=== PATIENT | male | born 1960 | race Two or more races ===

== ENCOUNTER 2016-12-22 22:04 | Inpatient (IN) | payer BC, MEDICAID ==
[~2016-12-22] VITALS: Ht 182.9 cm; Wt 96.6 kg
[~2016-12-22 22:04] MED LIST: AMIT100T2 PO; ARIP5TAB4 PO; CARV6.252 PO; CITA20TA11 PO; CLON0.1T PO; CLON2TAB4 PO; CYCL5TAB PO; D-ME473S17 PO; DIPH50CA4 PO; FINA5TAB11 PO; FURO40TA5 PO; GABA800T2 PO; IBUP-1482 PO; LISI10TA5 PO; METF500T4 PO; PRAV20TA4 PO; SPIR50TA3 PO; TAMS0.4C34 PO; WARF5TAB6 PO
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
[2016-12-22] MEDS ORDERED: IV SET PRIMARY 1 EA INFUS.SET MC ONE (22:39)
[2016-12-22] MEDS ORDERED: IV NS 0.9% 1,000 ML ONE (22:39)
--- NOTE | 2016-12-22 22:50 | NUR ---
VERBAL ORDER FROM DR. STACK 1L NS BOLUS. GIVEN VIA 20G LT HAND.
--- NOTE | 2016-12-22 22:54 | NUR ---
PT LEFT FOR CT VIA GURNEY.
[2016-12-22 22:55] LABS: BASOPHILS # (AUTO) 0.1 /CMM (0.0-0.2); BASOPHILS % (AUTO) 0.4 % (0.0-2.0); EOSINOPHILS # (AUTO) 0.1 /CMM (0.0-0.7); EOSINOPHILS % (AUTO) 0.7 % (0.0-6.0); HEMATOCRIT 35 % (39-51); HEMOGLOBIN 11.7 g/dL (13.5-17.5); LYMPHOCYTES # (AUTO) 0.9 /CMM (0.8-4.8); LYMPHOCYTES % (AUTO) 6.6 % (20.0-44.0); MEAN CORPUSCULAR HEMOGLOBIN 32 PG (26.0-33.0); MEAN CORPUSCULAR HGB CONC 34 g/dl (31.0-36.0); MEAN CORPUSCULAR VOLUME 93 fL (80-96); MONOCYTES # (AUTO) 1.2 /CMM (0.1-1.30); MONOCYTES % (AUTO) 8.2 % (2.0-12.0); NEUTROPHILS % (AUTO) 84.1 % (43.0-81.0); PLATELET COUNT (AUTO) 301 /CMM (150-450); RDW COEFFICIENT OF VARIATION 15.4 (11.5-15.0); RED BLOOD CELL COUNT(AUTO) 3.72 MIL/uL (4.5-6.0); WHITE BLOOD COUNT (AUTO) 14.3 K/uL (4.3-11.0)
[2016-12-22 23:11] LABS: APPEARANCE,URINE SL CLOUDY (CLEAR); BILIRUBIN,URINE 1+ (NEGATIVE); BLOOD, URINE NEGATIVE Ery/uL (NEGATIVE); COLOR,URINE YELLOW (YELLOW); KETONES,URINE TRACE (NEGATIVE); LEUKOCYTE ESTERASE ,URINE TRACE (NEGATIVE); NITRITE, URINE NEGATIVE (NEGATIVE); PH,URINE 5.5 (5.0-8.0); PROTEIN,URINE TRACE mg/dl (NEGATIVE); UGLUCOSE NEGATIVE (NEGATIVE); UROBILINOGEN,URINE 0.2 EU/dL (0.2)
[2016-12-22 23:14] LABS: CALCIUM, SERUM 8.2 mg/dL (8.5-10.1); CARBON DIOXIDE 19 mmol/L (21-32); CHLORIDE 103 mmol/L (98-107); CREATININE 4.4 mg/dL (0.6-1.3); GLUCOSE 140 mg/dL (74-106); SODIUM SERUM 137 mmol/L (136-145); UREA NITROGEN, BLOOD 52 mg/dL (7-18)
--- NOTE | 2016-12-22 23:15 | NUR ---
PT RETURNED FROM CT.
[2016-12-22 23:17] LABS: ALANINE AMINOTRANSFERASE 28 U/L (12-78); ALBUMIN 3.2 g/dL (3.4-5.0); ALCOHOL, BLOOD < 3 mg/dL (0-0); ALKALINE PHOSPHATASE 67 U/L (46-116); ASPARTATE AMINOTRANSFERASE 19 U/L (15-37); BILIRUBIN,TOTAL 0.3 mg/dL (0.2-1.0); TOTAL PROTEIN, SERUM 6.9 g/dL (6.4-8.2)
[2016-12-22 23:18] LABS: ACETAMINOPHEN 0 ug/ml (10-30); SALICYLATE 1.9 mg/dL (2.8-20.0)
[2016-12-22 23:19] LABS: BACTERIA,URINE None seen /HPF (None Seen); SQUAMOUS EPITHELIAL CELL,UR Few /HPF (None Seen); URINE AMORPHOUS URATE Few /HPF (None Seen)
[2016-12-22 23:20] LABS: HYALINE CASTS, URINE Rare /LPF (None Seen); MUCUS,URINE Few /LPF (None Seen)
--- NOTE | 2016-12-22 23:44 | NUR ---
PT RETURNING TO CT VIA JUSTUS
[2016-12-23] VITALS (58 sets, daily range): BP systolic 74–132; BP diastolic 40–71
--- NOTE | 2016-12-23 00:18 | NUR ---
PT RETURNED FROM CT.
--- NOTE | 2016-12-23 00:21 | NUR ---
LAB AT BEDSIDE FOR LACTIC DRAW.
--- NOTE | 2016-12-23 01:19 | NUR ---
PT APPEARS TO BE SLEEPING SOUNDLY. VSS. PT IS ON 2L O2 VIA NC SATURATING AT 99%.
--- NOTE | 2016-12-23 01:50 | NUR ---
PT'S BREATHING CHANGED TO AGONAL. BP DROPPED TO 77/49. DR. STACK NOTIFIED. PT TO BE INTUBATED. RT CALLED.
[2016-12-23] MEDS ORDERED: IV NS 0.9% 1,000 ML BAG IV ONE ×2 (02:00)
--- NOTE | 2016-12-23 02:00 | NUR ---
MD Herrera at bed side for intubation along with RT Enrique. medicated pt as ordered for intubation; 10mg etomidate ivp, 150mg succinycholine ivp
--- NOTE | 2016-12-23 02:03 | NUR ---
INTUBATED BY DR. STACK WITH 7.5 AND 23cm AT THE LIP.
[2016-12-23] MEDS ORDERED: IV NS 0.9% 1,000 ML ONE ×4 (02:11→05:55)
[2016-12-23] MEDS ORDERED: IV SET PRIMARY PUMP SET 1 EA INFUS.SET MC ONE ×4 (02:11→16:06)
[2016-12-23] MEDS ORDERED: PROPOFOL 100 ML IV ONE (02:11)
--- NOTE | 2016-12-23 02:20 | NUR ---
CXR AT THE BEDSIDE.
--- NOTE | 2016-12-23 02:24 | NUR ---
PROPOFOL STARTED AT 25MCG/MIN (17ML/HR)
--- NOTE | 2016-12-23 02:48 | NUR ---
REPORT GIVEN TO EL, RN/CHG.
[2016-12-23 02:53] LABS: ABG BASE EXCESS -10.4 mmol/L; ABG OXYGEN SATURATION 97.4 % (92.0-98.5); ABG PCO2 37.1 mmHg (35.0-45.0); ABG PH 7.251 (7.350-7.450); ABG PO2 129.6 mmHg (75.0-100.0); AaDO2 185.2 mmHg; COHb 0.2 % (0.5-1.5); MetHb 0.4 % (0.0-1.5); O2Hb 96.8 % (94.0-97.0); PEEP,BG 5 cm H2O; SITE, ABG Right Radial; VENT MODE, BG A/C 14 600 50% +5; VT, ABG 600 mL
--- NOTE | 2016-12-23 03:13 | NUR ---
PT TRANSPORTED TO ICU VIA GURNEY WITH EMT, RT AND MYSELF.
[2016-12-23] MEDS ORDERED: IV NS 0.9% 1,000 ML IV ONE ×2 (04:30→05:00)
--- NOTE | 2016-12-23 05:14 | NUR ---
OCCUPATIONAL THERAPY CO DIRECTOR PT WAS ADMITTED FROM ER WITH DIAGNOSIS POLYSUBSTANCE OD, RESPIRATORY FAILURE. STAT INTUBATION WAS DONE IN ER & PT WAS PLACED ON VENTILATOR AC MODE & STARTED PROPOFOL DRIP. NS IV BOLUS 2000 ML GIVEN IN ER. DRUG SCREEN IS POSITIVE FOR OPIATES. LUNGS ARE CLEAR. SCOPE-SR. BY THE TIME PT ARRIVED TO ICU AT 03.30 A.M. BP DROPPED TO 74/40 PT GOT NONRESPONSIVE. REBECCA. PUPILS SIZE 2 MM. PROPOFOL DRIP STOPPED. GIVEN ANOTHER NS 1000 ML IV BOLUS. BP WENT UP TO 95/54. PT RESPONSE NOW TO PAINFUL STIMULI. ANOTHER NS BOLUS 1000 ML STARTED BY KIRA HUGHES DNP ORDER. /TOTALLY 4000 ML/. BY 5 A.M. BP 120/68. PT IS GETTING AGITATED, RESTARTED PROPOFOL DRIP. ETT WAS PULLED BACK BY 2 CM BY KIRA HUGHES DNP ORDER. ANOTHER STAT CXR ORDERED. SOFT WRIST RESTRAINS APPLIED. WILL CONTINUE CLOSE MONITORING
[2016-12-23] MEDS ORDERED: IV D5W 50 ML IV ONE (05:55)
[2016-12-23] MEDS ORDERED: PIPERACILLIN /TAZOBACTAM 3.375 G VIAL IV ONE (05:55)
[2016-12-23] MEDS ORDERED: SECONDARY IV SET 1 EA INFUS.SET MC ONE ×2 (05:56→11:01)
[2016-12-23] MEDS ORDERED: ENOXAPARIN SODIUM 40 MG/0.4 ML DISP.SYRIN SQ ONE (05:58)
[2016-12-23] MEDS ORDERED: PIPERACILLIN /TAZOBACTAM 3.375 G in IV D5W 50 ML IV SCH (06:00)
[2016-12-23] MEDS ORDERED: ONDANSETRON HCL/PF 4 MG/2 ML VIAL IVP PRN (06:00)
[2016-12-23] MEDS ORDERED: LEVOFLOXACIN 500 MG /D5W 100ML 500 MG in PREMIX 1 EA IV SCH (06:00)
[2016-12-23] MEDS ORDERED: ACETAMINOPHEN 325 MG TABLET PO PRN (06:00)
[2016-12-23] MEDS ORDERED: ENOXAPARIN SODIUM 40 MG/0.4 ML DISP.SYRIN SQ SCH (06:00)
[2016-12-23] MEDS: IV NS 0.9% 1,000 ML IV PRN ×3 (06:01→23:02)
[2016-12-23] MEDS ORDERED: LEVOFLOXACIN 500 MG /D5W 100ML 100 ML IV ONE (06:07)
[2016-12-23 06:17] LABS: ABG OXYGEN SATURATION 97.2 % (92.0-98.5); ABG PCO2 36.2 mmHg (35.0-45.0); ABG PH 7.285 (7.350-7.450); ABG PO2 114.9 mmHg (75.0-100.0); AaDO2 200.9 mmHg; COHb 0.3 % (0.5-1.5); O2Hb 95.9 % (94.0-97.0); PEEP,BG 5 cm H2O; SITE, ABG Right Radial; VT, ABG 600 mL
[2016-12-23] MEDS ORDERED: NOREPINEPHRINE 8 MG in IV D5W 500 ML IV PRN ×2 (06:30→08:00)
--- NOTE | 2016-12-23 06:47 | NUR ---
BUTCHER HELPER STARTED ZOSYN & LEVAQUIN IVPB. MAIN IV NS @ 150 ML/HR. BP IS BORDERLINE. PROPOFOL DRIP AT 5 MCG/KG/MIN. LEVOPHED PRN. NEED MIDLINE INSERTION. FREDRICK HU RN WAS NOTIFIED. URINE OUTPUT IS INADEQUATE. ANOTHER ABG DONE. PT IS IN METABOLIC ACIDOSES/ SEE RESULTS/. KIRA HUGHES DNP WAS CALLED.
--- NOTE | 2016-12-23 07:58 | NUR ---
ICU/RN: INITIAL NOTES,AM RECEIVED REPORT FROM NIGHT NURSE. PT INTUBATED ETT 7.5, 25CM AT THE LIP. PT ON VENT SETTINGS ORDERED BY MD, NO ACUTE RESP. DISTRESS NOTED AT THIS TIME. PT ON TELE, SINUS, HR 64. PT FOLLOWS COMMANDS. OPENS EYES AND TRACKS. LEON IN PLACE, DRAINING YELLOW URINE. PIVS IN PLACE AND INTACT, NO S/S OF INFECTION OR INFILTRATION NOTED. DIPRIVAN INFUSING ORDERED. MAINTENANCE FLUIDS INFUSING ORDERED 150 ML/HR. DR.TIM HUGHES WILL COME TO INSERT CENTRAL LINE. BILATERAL WRIST RESTRAINTS, ASSESSED PER PROTOCOL. ALL NEEDS WILL BE MET, SAFETY MEASURES TAKEN, BED IN LOW POSITION, SIDE RAILS UP, CALL LIGHT WITHIN REACH.
[2016-12-23] MEDS: PROPOFOL 100 ML IV PRN ×6 (08:44→23:02)
[2016-12-23] MEDS ORDERED: LEVOFLOXACIN 250 MG /D5W 50 ML 250 MG in PREMIX 1 EA IV SCH (09:00)
[2016-12-23] MEDS ORDERED: PANTOPRAZOLE 40 MG VIAL IV SCH (09:00)
[2016-12-23] MEDS ORDERED: ETOMIDATE 2 MG/ML VIAL IV ONE (09:00)
[2016-12-23] MEDS ORDERED: SUCCINYLCHOLINE CHLORIDE 20 MG/ML VIAL IV ONE (09:00)
[2016-12-23] MEDS ORDERED: FEE PK DOSING 1 MIN EA MC ONE (09:30)
[2016-12-23] MEDS ORDERED: VANCOMYCIN 1 GM in IV D5W 250 ML IV SCH (10:00)
[2016-12-23 10:01] LABS: BASOPHILS % (AUTO) 0.1 % (0.0-2.0); EOSINOPHILS # (AUTO) 0.1 /CMM (0.0-0.7); EOSINOPHILS % (AUTO) 0.6 % (0.0-6.0); HEMATOCRIT 31 % (39-51); HEMOGLOBIN 10.4 g/dL (13.5-17.5); LYMPHOCYTES # (AUTO) 1.2 /CMM (0.8-4.8); MEAN CORPUSCULAR HEMOGLOBIN 32 PG (26.0-33.0); MEAN CORPUSCULAR HGB CONC 33 g/dl (31.0-36.0); MEAN CORPUSCULAR VOLUME 95 fL (80-96); MONOCYTES % (AUTO) 9.1 % (2.0-12.0); NEUTROPHILS # (AUTO) 8.5 /CMM (1.8-8.9); NEUTROPHILS % (AUTO) 79.2 % (43.0-81.0); PLATELET COUNT (AUTO) 231 /CMM (150-450); RDW COEFFICIENT OF VARIATION 15.8 (11.5-15.0); RED BLOOD CELL COUNT(AUTO) 3.29 MIL/uL (4.5-6.0); WHITE BLOOD COUNT (AUTO) 10.7 K/uL (4.3-11.0)
[2016-12-23 11:02] LABS: ALBUMIN 2.6 g/dL (3.4-5.0); BILIRUBIN,TOTAL 0.4 mg/dL (0.2-1.0); CALCIUM, SERUM 7.1 mg/dL (8.5-10.1); CREATININE 3.4 mg/dL (0.6-1.3); MAGNESIUM 1.8 mg/dL (1.8-2.4); PHOSPHORUS 3.8 mg/dL (2.5-4.9); POTASSIUM 4.4 mmol/L (3.5-5.1); TOTAL PROTEIN, SERUM 5.9 g/dL (6.4-8.2)
--- NOTE | 2016-12-23 11:45 | NUR ---
ICU/RN: PER MD ETT ADVANCED AGAIN TO 28CM. STAT CHEST XRAY DONE
[2016-12-23] MEDS: PIPERACILLIN /TAZOBACTAM 2.25 G in IV D5W 50 ML IV SCH ×3 (12:21→23:15)
--- NOTE | 2016-12-23 16:53 | NUR ---
END OF SHIFT SUMMARY PT REMAINS INTUBATED WITH 7.5 EET-TUBE SECURED AT 28CM. VENT SETTINGS ORDERED ALARMS SET AND AUDIBLE. B/S EQUAL. AMBUBAG AT HEAD OF BED Addendum: 12/23/16 at 1654 by CHILANGO THOMAS RT Amended: Links added.
--- NOTE | 2016-12-23 18:46 | NUR ---
ICU/RN ENDING NOTES,AM REPORT WILL BE ENDORSED TO NIGHT NURSE FOR CONTINUATION OF CARE. PT INTUBATED ETT 7.5 AND ANCHORED AT 28 CM AT THE LIP. PT ON VENT SETTINGS ORDERED BY MD, NO ACUTE DISTRESS NOTED AT THIS TIME. DIPRIVAN INFUSING AT [address], DRAINING YELLOW URINE. RIGHT CHEST WALL CENTRAL LINE IN PLACE, FLUSHED. ALL NEEDS MET, SAFETY MEASURES TAKEN, BED IN LOW POSITION, SIDE RAILS UP, CALL LIGHT WITHIN REACH.
--- NOTE | 2016-12-23 21:01 | NUR ---
JACQUARD LOOM HEDDLES TIER. INITIAL ASSESSMENT.RECEIVED THE PT REST ON THE BED.ORALLY INTUBATED.SEDATED WITH DIPRIVAN. 50MCG/KG/MIN,IVF NS 150ML/H.IV RT CHEST CENTRAL LINE..NPO. LINWOOD SOFT WRIST RESTRAINT CHECKED AND RELEASED.NO INJURY OR REDNESS NOTED.CASHIER ASSISTANT SHOWING NSR.FC PATENT.URINE DRAINING.HOB ELEVATED.TURN AND REPOSITION Q2H. WILL CONTINUE TO MONITOR VITALS.
--- NOTE | 2016-12-23 21:16 | NUR ---
BOOK MENDER.PT GETTING OUT OF BED.BITING TUBES.AGITATED.CALLED BANK RUNNER ERIC NEW ORDER RECEIVED.
[2016-12-23] MEDS: FAMOTIDINE/PF INJ 20 MG/2 ML VIAL IV SCH (21:49)
--- NOTE | 2016-12-23 22:08 | NUR ---
RECEIVED THE PT ORALLY INTUBATED.ETT 7.5CMS,AC 24CM,QXC39UM,TV 600,FIO2 50%,PEEP 5.SAT 98%.NO ACUTE DISTRESS NOTED.WILL CONTINUE TO MONITOR.
[2016-12-24] VITALS (52 sets, daily range): BP systolic 101–152; BP diastolic 62–85
[2016-12-24] MEDS: PROPOFOL 100 ML IV PRN ×11 (02:11→23:24)
--- NOTE | 2016-12-24 03:42 | NUR ---
AM CARE..ORAL CARE BED BATH GIVEN.LINEN CHANGED.REMAINING SAME VENT SETTING TOLERATED WELL.SAT 99%.NO ACUTE DISTRESS NOTED..[employer] SALES ENGINEER SHOWING NSR.. IVF NS 200ML/H..,DIPRIVAN 50MCG/KG/MIN.FC PATENT.HOB ELEVATED. NPO.TURN AND REPOSITION Q2H.WILL CONTINUE TO MONITOR VITALS.
[2016-12-24 04:30] LABS: BASOPHILS % (AUTO) 0.1 % (0.0-2.0); EOSINOPHILS # (AUTO) 0.1 /CMM (0.0-0.7); EOSINOPHILS % (AUTO) 1.5 % (0.0-6.0); HEMATOCRIT 30 % (39-51); HEMOGLOBIN 10.2 g/dL (13.5-17.5); MEAN CORPUSCULAR HEMOGLOBIN 32 PG (26.0-33.0); MEAN CORPUSCULAR HGB CONC 34 g/dl (31.0-36.0); MEAN CORPUSCULAR VOLUME 95 fL (80-96); MONOCYTES # (AUTO) 0.6 /CMM (0.1-1.30); MONOCYTES % (AUTO) 7.9 % (2.0-12.0); NEUTROPHILS # (AUTO) 5.4 /CMM (1.8-8.9); NEUTROPHILS % (AUTO) 76.5 % (43.0-81.0); PLATELET COUNT (AUTO) 234 /CMM (150-450); RDW COEFFICIENT OF VARIATION 15.6 (11.5-15.0); RED BLOOD CELL COUNT(AUTO) 3.19 MIL/uL (4.5-6.0); WHITE BLOOD COUNT (AUTO) 7.1 K/uL (4.3-11.0)
[2016-12-24] MEDS: LORAZEPAM INJ 2 MG/ML VIAL IV PRN (04:52)
[2016-12-24] MEDS: PIPERACILLIN /TAZOBACTAM 2.25 G in IV D5W 50 ML IV SCH ×4 (04:58→23:27)
[2016-12-24 05:03] LABS: ALBUMIN 2.4 g/dL (3.4-5.0); BILIRUBIN,TOTAL 0.2 mg/dL (0.2-1.0); CALCIUM, SERUM 7.9 mg/dL (8.5-10.1); CREATININE 1.4 mg/dL (0.6-1.3); MAGNESIUM 1.9 mg/dL (1.8-2.4); PHOSPHORUS 2.6 mg/dL (2.5-4.9); POTASSIUM 4.2 mmol/L (3.5-5.1); TOTAL PROTEIN, SERUM 5.7 g/dL (6.4-8.2)
[2016-12-24 05:10] LABS: THYROID STIMULATING HORMONE 0.88 uIU/mL (0.358-3.74)
[2016-12-24] MEDS: IV NS 0.9% 1,000 ML IV PRN ×3 (05:20→20:39)
[2016-12-24 05:38] LABS: CREATINE KINASE MB 4.8 ng/mL (0-3.6)
--- NOTE | 2016-12-24 06:21 | NUR ---
SENIOR DESIGN ENGINEERING SPECIALIST PT BED SCALE NOT WORKING.
--- NOTE | 2016-12-24 07:47 | NUR ---
PT REC'D INTUBATED VIA 7.5 ETT AT 28CM AT THE LIP. VENT SETTINGS PER MD REQUEST. PT SUCTIONED WITH MINIMAL WHITE/CLEAR SECRETIONS NOTED. GOOD GAG REFLEX NOTED. ALARMS SET AND AUDIBLE PER POLICY. VENT PLUGGED INTO RED OUTLET. AMBU BAG AT HOB. Addendum: 12/24/16 at 0751 by LYNSEY TEE RT Amended: Links added.
[2016-12-24] MEDS: LEVOFLOXACIN 250 MG /D5W 50 ML 250 MG in PREMIX 1 EA IV SCH (08:03)
[2016-12-24] MEDS: FAMOTIDINE/PF INJ 20 MG/2 ML VIAL IV SCH ×2 (08:04→20:39)
[2016-12-24] MEDS: ENOXAPARIN SODIUM 30 MG/0.3 ML DISP.SYRIN SQ SCH (08:05)
--- NOTE | 2016-12-24 10:10 | NUR ---
INDUSTRIAL MECHANIC PATIENT REMAINS IN MECHANICAL VENTILATORY SUPPORT WITH RESTRAINT ON HIS WRIST PLACED ON SEDATION VACATION AROUND 0915 BUT PUT BACK ON SEDATION FOR A COUPLE OF MINUTES DUE TO RESTLESSNESS BLOOD PRESSURE SEEMS ELEVATING BUT HEART RATE REMAINS IN THE LOW 50'S URINE SPECIMEN GIVEN TO LABORATORY, AWAITING RESULT SEEN AND EXAMINED BY STUDIO ASSISTANT WITH NEW ORDERS MADE AND CARRIED OUT
[2016-12-24 10:34] LABS: APPEARANCE,URINE CLEAR (CLEAR); BILIRUBIN,URINE NEGATIVE (NEGATIVE); BLOOD, URINE 1+ Ery/uL (NEGATIVE); COLOR,URINE YELLOW (YELLOW); KETONES,URINE NEGATIVE (NEGATIVE); LEUKOCYTE ESTERASE ,URINE NEGATIVE (NEGATIVE); NITRITE, URINE NEGATIVE (NEGATIVE); PROTEIN,URINE NEGATIVE (NEGATIVE); UGLUCOSE NEGATIVE (NEGATIVE); UROBILINOGEN,URINE 0.2 EU/dL (0.2)
[2016-12-24 10:39] LABS: URINE TOTAL PROTEIN 11.7 mg/dL (0-11.9)
[2016-12-24 10:48] LABS: BACTERIA,URINE None seen /HPF (None Seen); SQUAMOUS EPITHELIAL CELL,UR None Seen /HPF (None Seen); WBC,URINE NONE SEEN /HPF (0-3)
[2016-12-24 11:27] LABS: EOSINOPHIL,URINE None Seen
[2016-12-24] MEDS: Z GUARD REMEDY 2 OZ OINT TP PRN (14:16)
[2016-12-24] MEDS ORDERED: SECONDARY IV SET 1 EA INFUS.SET MC ONE (16:28)
[2016-12-24] MEDS ORDERED: IV SET PRIMARY PUMP SET 1 EA INFUS.SET MC ONE (16:28)
[2016-12-24] MEDS: FIBERSOURCE HN 1,000 ML BOTTLE GT PRN (18:36)
[2016-12-25] VITALS (44 sets, daily range): BP systolic 110–164; BP diastolic 48–98
[2016-12-25] MEDS: PROPOFOL 100 ML IV PRN ×10 (01:37→22:37)
[2016-12-25] MEDS: IV NS 0.9% 1,000 ML IV PRN ×4 (03:58→23:56)
--- NOTE | 2016-12-25 04:00 | NUR ---
COMMUNITY CENTER WORKER PTS HR LOW IN THE 50'S. BP WNL . WILL DECREASE DIPRIVAN TOLERATED.
[2016-12-25] MEDS: PIPERACILLIN /TAZOBACTAM 2.25 G in IV D5W 50 ML IV SCH ×4 (05:03→23:56)
--- NOTE | 2016-12-25 05:33 | NUR ---
SPECIAL WEAPONS UNIT OFFICER PT RECEIVED INTUBATED 26 @LIP ON VENT WITH AC 18 TV500 FIO2 35% PEEP 5. RESTRAINTS IN PLACE FOR PROTECTION OF AIRWAY. OGT INTACT AND PATENT.FC INTACT AND PATENT . RCW PICC INTACT AND PATENT.WILL MONITOR FOR ANY CHANGES Addendum: 12/25/16 at 0541 by VERA AVERY RN ENTRY NOTE FOR 12/24/16 @1999
--- NOTE | 2016-12-25 06:01 | NUR ---
PERSONAL FINANCIAL ADVISOR BED SCALE BROKEN ,PT TOO UNSTABLE TO USE AUBREY LIFT
--- NOTE | 2016-12-25 07:15 | NUR ---
ENDO TECH NOTES RECEIVED PATIENT SEDATED , RESPONSIVE TO PAIN STIMULI , NOT IN ACUTE DISTRESS , RESPIRATIONS EVEN AND UNLABORED WITH SPO2 OF 100% VIA MECHANICAL VENTILATOR SETTING ORDERED TOLERATING WELL , ETT 7.5 / IN PLACE , SB 58 ON BEDSIDE MONITOR , FC DRAINING VIA GRAVITY WITH CLEAR YELLOW URINE, OJT IN PLACE VERIFIED PLACEMENT VIA AUSCULTATION NOTED WITH GURGLING SOUND AROUND STOMACH , TUBE FEEDING OF FIBERSOURCE @ 70ML/HR TOLERATING WELL WITH NO RESIDUALS NOTED , L HAND # 20 PATENT AND INTACT WITH R SUBCLAVIAN TLC PATENT AND INTACT WITH NS@ 150ML/HR ,DIPRIVAN @ 35MCG/MIN INFUSING WELL , ALL NEEDS ATTENDED , BED ON LOW AND LOCKED POSITION , HOB @ 35 , SIDE RAILS X2 , WILL CONTINUE TO MONITOR .
[2016-12-25] MEDS: FAMOTIDINE/PF INJ 20 MG/2 ML VIAL IV SCH ×2 (08:20→20:25)
[2016-12-25] MEDS: LEVOFLOXACIN 250 MG /D5W 50 ML 250 MG in PREMIX 1 EA IV SCH (08:20)
[2016-12-25] MEDS: ENOXAPARIN SODIUM 30 MG/0.3 ML DISP.SYRIN SQ SCH (08:28)
--- NOTE | 2016-12-25 09:00 | NUR ---
SENIOR COST ACCOUNTANT NOTES SEEN AND EVALUATED BY DR MCCLENDON , PT DIPRIVAN TITRATED DOWN TO 35MCG/MIN , PT ABLE TO WAKES UP , AGITATED , DOESN'T FOLLOWS COMMANDS , WEANING OFF VENT TODAY , PT IS AFEBRILE WITH STABLE V/S , TOLERATING TUBE FEEDINGS , NO NEW LABS FOR TODAY, MD [facility]
--- NOTE | 2016-12-25 09:45 | NUR ---
HEARING OFFICER NOTES SEDATION VACATION STARTED @ 0900 PATIENT ON DIPRIVAN TITRATED FROM 65MCG/MIN TO 35MCG/MIN , PT IS AWAKE , OPENS EYES , FOLLOWS COMMANDS , AGITATED , BILATERAL SOFT WRIST RESTRAINS IN PLACE , DR WILL AT BEDSIDE , DISCUSSED VENT SETTINGS WITH INSPIRATORY PEAK OF 32-35, AFEBRILE , BP OF 147/80 , HR 67 , PER MD INCREASE SEDATION AND WILL DO WEANING TOMORROW PT IS NOTED WITH TACHYPNEA , DIPRIVAN INCREASED TO 65MCG/MIN ,WILL CONTINUE TO MONITOR
[2016-12-25 12:11] LABS: PTH, INTACT 325 pg/mL (15-65)
[2016-12-25 13:12] LABS: *SPE A/G RATIO 1.1 (0.7-1.7); *SPE ALBUMIN 2.7 g/dL (2.9-4.4); *SPE ALPHA-1-GLOBULIN 0.3 g/dL (0.0-0.4); *SPE ALPHA-2-GLOBULIN 0.7 g/dL (0.4-1.0); *SPE BETA GLOBULIN 0.8 g/dL (0.7-1.3); *SPE GLOBULIN, TOTAL 2.5 g/dL (2.2-3.9); *SPE M-SPIKE Not Observed g/dL (Not Observed); *SPE PROTEIN TOTAL 5.2 g/dL (6.0-8.5); *SPEGAMMA GLOBULIN 0.7 g/dL (0.4-1.8)
[2016-12-25] MEDS: LORAZEPAM INJ 2 MG/ML VIAL IV PRN (13:54)
[2016-12-25] MEDS ORDERED: HEPARIN INFUSION/D5W 500 ML IV PRN (14:30)
[2016-12-25] MEDS: FIBERSOURCE HN 1,000 ML BOTTLE GT PRN (16:21)
[2016-12-25] MEDS: LACTOBACILLUS RHAMNOSUS GG 1 EACH CAP.SPRINK GT SCH (17:47)
[2016-12-25] MEDS ORDERED: IV SET PRIMARY PUMP SET 1 EA INFUS.SET MC ONE (19:20)
[2016-12-25] MEDS: MUPIROCIN OINT 2% 22 GM TUBE TP SCH (20:23)
--- NOTE | 2016-12-25 20:39 | NUR ---
ENTRY EXAMINER; RECEIVED PATIENT SEDATED , RESPONSIVE TO PAIN STIMULI , NOT IN ACUTE DISTRESS , RESPIRATIONS EVEN AND UNLABORED WITH SPO2 OF 100% VIA MECHANICAL VENTILATOR SETTING ORDERED TOLERATING WELL , ETT 7.5 / IN PLACE , SR/SB 55-65 ON MONITOR , FC DRAINING VIA GRAVITY WITH CLEAR YELLOW URINE, OJT IN PLACE VERIFIED PLACEMENT VIA AUSCULTATION NOTED WITH GURGLING SOUND AROUND STOMACH , TUBE FEEDING OF FIBERSOURCE @ 70ML/HR TOLERATING WELL WITH NO RESIDUALS NOTED , L HAND # 20 PATENT AND INTACT WITH R SUBCLAVIAN TLC PATENT AND INTACT WITH NS@ 150ML/HR ,DIPRIVAN @ 70MCG/KG/MIN INFUSING WELL , ALL NEEDS ATTENDED. SAFETY PRECAUTION PLACED. BILATERAL SOFT RESTRAINTS ON FOR SAFETY REASON, RELEASED FOR SKIN CHECKED WITH ADEQUATE CIRCULATION NOTED, ROM PROVIDED THEN PUT IT BACK FOR SAFETY. KEEP MONITORING...
[2016-12-26] VITALS (56 sets, daily range): BP systolic 135–174; BP diastolic 73–107
[2016-12-26] MEDS: PROPOFOL 100 ML IV PRN ×12 (01:12→22:48)
[2016-12-26 04:28] LABS: BASOPHILS % (AUTO) 0.3 % (0.0-2.0); EOSINOPHILS # (AUTO) 0.1 /CMM (0.0-0.7); EOSINOPHILS % (AUTO) 1.6 % (0.0-6.0); HEMATOCRIT 30 % (39-51); HEMOGLOBIN 10.1 g/dL (13.5-17.5); LYMPHOCYTES # (AUTO) 1.2 /CMM (0.8-4.8); LYMPHOCYTES % (AUTO) 18.5 % (20.0-44.0); MEAN CORPUSCULAR HEMOGLOBIN 32 PG (26.0-33.0); MEAN CORPUSCULAR HGB CONC 34 g/dl (31.0-36.0); MEAN CORPUSCULAR VOLUME 95 fL (80-96); MONOCYTES # (AUTO) 0.5 /CMM (0.1-1.30); MONOCYTES % (AUTO) 7.4 % (2.0-12.0); NEUTROPHILS # (AUTO) 4.6 /CMM (1.8-8.9); NEUTROPHILS % (AUTO) 72.2 % (43.0-81.0); PLATELET COUNT (AUTO) 287 /CMM (150-450); RDW COEFFICIENT OF VARIATION 15.1 (11.5-15.0); RED BLOOD CELL COUNT(AUTO) 3.17 MIL/uL (4.5-6.0); WHITE BLOOD COUNT (AUTO) 6.4 K/uL (4.3-11.0)
[2016-12-26 04:53] LABS: CALCIUM, SERUM 8.1 mg/dL (8.5-10.1); PHOSPHORUS 3.6 mg/dL (2.5-4.9); POTASSIUM 4.4 mmol/L (3.5-5.1)
[2016-12-26 05:11] LABS: MAGNESIUM 1.2 mg/dL (1.8-2.4)
[2016-12-26] MEDS ORDERED: Magnesium 1GM/D5W 100ML PREMIX 200 ML IV ONE (05:24)
[2016-12-26] MEDS ORDERED: IV SET PRIMARY PUMP SET 1 EA INFUS.SET MC ONE ×2 (05:24→17:46)
--- NOTE | 2016-12-26 05:30 | NUR ---
WOOD TECHNOLOGIST: CRITICAL LAB RESULTS MAG 1.2, NEW ORDERS RECEIVED FROM SENIOR SOFTWARE TESTER YEHUDA KINCAID, 2 GM MAG IV.
[2016-12-26] MEDS: PIPERACILLIN /TAZOBACTAM 2.25 G in IV D5W 50 ML IV SCH (05:40)
[2016-12-26] MEDS: Magnesium 1GM/D5W 100ML PREMIX 100 ML IV SCH ×2 (05:40→06:35)
[2016-12-26] MEDS: IV NS 0.9% 1,000 ML IV PRN ×2 (06:36→17:06)
--- NOTE | 2016-12-26 08:00 | NUR ---
ICU/RN: INITIAL NOTES,AM RECEIVED REPORT FROM NIGHT NURSE. PT INTUBATED ETT 7.5, 24CM AT THE LIP. PT ON VENT SETTINGS ORDERED BY MD, NO ACUTE RESP. DISTRESS NOTED AT THIS TIME. PT ON TELE, SINUS, . PT SEDATED, 65 MCH DIPRIVAN. LEON IN PLACE, DRAINING YELLOW URINE. PIVS AND CENTRAL LINE IN PLACE AND INTACT, NO S/S OF INFECTION OR INFILTRATION NOTED. MAINTENANCE FLUIDS INFUSING ORDERED 150 ML/HR. BILATERAL WRIST RESTRAINTS, ASSESSED PER PROTOCOL. ALL NEEDS WILL BE MET, SAFETY MEASURES TAKEN, BED IN LOW POSITION, SIDE RAILS UP, CALL LIGHT WITHIN REACH.
--- NOTE | 2016-12-26 08:30 | NUR ---
ICU/RN: SEDATION VACATION: DIPRIVAN TURNED DOWN PT OPENS EYES, FOLLOWED SIMPLE COMMANDS, RESUMED PRIOR DOSE FOR SAFETY, WILL CONTINUE TO MONITOR
[2016-12-26 08:42] LABS: ABG BASE EXCESS -4.3 mmol/L; ABG OXYGEN SATURATION 95.9 % (92.0-98.5); ABG PCO2 37.6 mmHg (35.0-45.0); ABG PH 7.358 (7.350-7.450); AaDO2 112.8 mmHg; COHb 0.2 % (0.5-1.5); MetHb 0.6 % (0.0-1.5); O2Hb 95.1 % (94.0-97.0); PEEP,BG 5 cm H2O; SITE, ABG Right Brachial; VT, ABG 500 mL
[2016-12-26] MEDS: LACTOBACILLUS RHAMNOSUS GG 1 EACH CAP.SPRINK GT SCH ×2 (09:05→17:06)
[2016-12-26] MEDS: ENOXAPARIN SODIUM 30 MG/0.3 ML DISP.SYRIN SQ SCH (09:05)
[2016-12-26] MEDS: FAMOTIDINE/PF INJ 20 MG/2 ML VIAL IV SCH ×2 (09:05→20:42)
[2016-12-26] MEDS: MUPIROCIN OINT 2% 22 GM TUBE TP SCH ×2 (09:17→20:42)
[2016-12-26] MEDS: LEVOFLOXACIN 250 MG /D5W 50 ML 250 MG in PREMIX 1 EA IV SCH (09:19)
[2016-12-26] MEDS: PIPERACILLIN /TAZOBACTAM 3.375 G in IV D5W 50 ML IV SCH ×3 (11:29→23:21)
[2016-12-26] MEDS: FIBERSOURCE HN 1,000 ML BOTTLE GT PRN (17:35)
--- NOTE | 2016-12-26 18:20 | NUR ---
ICU/RN ENDING NOTES,AM REPORT WILL BE ENDORSED TO NIGHT NURSE FOR CONTINUATION OF CARE. ALL NEEDS MET, PT BATHE, TURNED AND REPOSITIONED. ON VENT SETTINGS ORDERED BY MD, NO ACUTE DISTRESS NOTED. CONTINUES TO BE SEDATED ON 70MCG DIPRIVAN. SAFETY MEASURES TAKEN, WILL CONTINUE CARE
[2016-12-27] VITALS (40 sets, daily range): BP systolic 134–181; BP diastolic 62–103
[2016-12-27] MEDS: PROPOFOL 100 ML IV PRN ×11 (00:54→20:20)
[2016-12-27] MEDS: IV NS 0.9% 1,000 ML IV PRN ×2 (00:54→08:30)
[2016-12-27] MEDS: LORAZEPAM INJ 2 MG/ML VIAL IV PRN (01:35)
--- NOTE | 2016-12-27 01:40 | NUR ---
POT PUNCHER DF PT AGITATED,RESTLESS FLAILING HEAD SIDE TO SIDE WITH FACIAL GRIMACING. MEDICATED WITH ATIVAN 1MG.VSS.SEDATED ON DIPRIVAN @ 70MCG/MIN IV.
[2016-12-27] MEDS ORDERED: IV SET PRIMARY PUMP SET 1 EA INFUS.SET MC ONE ×4 (04:55→18:12)
[2016-12-27 05:06] LABS: BASOPHILS % (AUTO) 0.3 % (0.0-2.0); EOSINOPHILS # (AUTO) 0.1 /CMM (0.0-0.7); EOSINOPHILS % (AUTO) 2.1 % (0.0-6.0); HEMATOCRIT 30 % (39-51); HEMOGLOBIN 10.2 g/dL (13.5-17.5); LYMPHOCYTES # (AUTO) 1.2 /CMM (0.8-4.8); LYMPHOCYTES % (AUTO) 20.8 % (20.0-44.0); MEAN CORPUSCULAR HEMOGLOBIN 32 PG (26.0-33.0); MEAN CORPUSCULAR HGB CONC 34 g/dl (31.0-36.0); MEAN CORPUSCULAR VOLUME 94 fL (80-96); MONOCYTES # (AUTO) 0.4 /CMM (0.1-1.30); MONOCYTES % (AUTO) 7.7 % (2.0-12.0); NEUTROPHILS # (AUTO) 3.9 /CMM (1.8-8.9); NEUTROPHILS % (AUTO) 69.1 % (43.0-81.0); PLATELET COUNT (AUTO) 307 /CMM (150-450); RED BLOOD CELL COUNT(AUTO) 3.22 MIL/uL (4.5-6.0); WHITE BLOOD COUNT (AUTO) 5.7 K/uL (4.3-11.0)
[2016-12-27] MEDS: FIBERSOURCE HN 1,000 ML BOTTLE GT PRN (05:14)
[2016-12-27] MEDS: PIPERACILLIN /TAZOBACTAM 3.375 G in IV D5W 50 ML IV SCH ×4 (05:15→23:30)
--- NOTE | 2016-12-27 07:15 | NUR ---
DIRECTOR OF STRATEGIC SOURCING NOTES RECEIVED PATIENT SEDATED , NOT IN ACUTE DISTRESS , RESPIRATIONS EVEN AND UNLABORED SPO2 OF 100% VIA MECHANICAL VENTILATOR SETTINGS ORDERED , ETT 7.[address] , SR 57 ON BEDSIDE MONITOR , OJT PATENT AND INTACT PLACEMENT VERIFIED VIA AUSCULTATION , TUBE FEEDING OF FIBERSOURCE @ 50ML/HR INFUSING WELL WITH NO RESIDUALS NOTED , FC DRAINING WELL WITH YELLOW GREENISH CLEAR URINE VIA GRAVITY , BILATERAL SOFT WRIST RESTRAINTS IN PLACE , R SUBCLAVIAN TLC PATENT AND INTACT WITH NS @ 150ML/HR , DIPRIVAN @ 70MCG/MIN INFUSING WELL , ALL NEEDS ATTENDED , BED ON LOW AND LOCKED POSITION , SIDE RAILS X2 ,CALL LIGHT WITHIN REACH , HOB @ 35 , WILL CONTINUE TO MONITOR .
[2016-12-27] MEDS ORDERED: FIBERSOURCE HN 1,000 ML BOTTLE GT PRN (08:30)
[2016-12-27] MEDS: FAMOTIDINE/PF INJ 20 MG/2 ML VIAL IV SCH ×2 (08:30→21:36)
[2016-12-27] MEDS: LACTOBACILLUS RHAMNOSUS GG 1 EACH CAP.SPRINK GT SCH ×2 (08:31→16:01)
[2016-12-27] MEDS: PROSOURCE / PROSTAT (PYXIS) 30 ML UDC GT SCH ×3 (08:31→16:01)
[2016-12-27] MEDS: MUPIROCIN OINT 2% 22 GM TUBE TP SCH ×2 (08:32→21:37)
[2016-12-27] MEDS ORDERED: SECONDARY IV SET 1 EA INFUS.SET MC ONE (08:34)
[2016-12-27] MEDS: ENOXAPARIN SODIUM 30 MG/0.3 ML DISP.SYRIN SQ SCH (08:41)
[2016-12-27] MEDS ORDERED: LEVOFLOXACIN 500 MG /D5W 100ML 500 MG in PREMIX 1 EA IV SCH (09:00)
--- NOTE | 2016-12-27 09:00 | NUR ---
BANKRUPTCY ASSISTANT NOTES SEDATION VACATION STARTED , TITRATED DIPRIVAN @ 30MCG/MIN , WILL CONTINUE TO MONITOR
[2016-12-27 09:09] LABS: CALCIUM, SERUM 8.1 mg/dL (8.5-10.1); PHOSPHORUS 4.1 mg/dL (2.5-4.9); POTASSIUM 4.5 mmol/L (3.5-5.1)
[2016-12-27 09:12] LABS: MAGNESIUM 1.2 mg/dL (1.8-2.4)
--- NOTE | 2016-12-27 10:00 | NUR ---
NURSE PLASTICS NOTES DR WILL AT BEDSIDE, PT ON LOW DOSE SEDATION AT THIS TIME , DIPRIVAN TITRATED DOWN TO 30MCG/MIN , WAKING UP , FOLLOWS SIMPLE COMMANDS ,AGITATED , INSPIRATORY PEAK OF 44 , DISCUSSED LABS , CHEST XRAY , BLOOD PRESSURE IS ELEVATED 160'S - 170 , MD AWARE , PER MD DISCONTINUE LEVAQUIN IV AND ORDER DAILY CHEST XRAY AND ABG , PER MD INCREASE DIPRIVAN RATE PT IS NOT STABLE FOR WEANING , ORDERS CARRIED OUT
--- NOTE | 2016-12-27 10:30 | NUR ---
ANALYSIS INTERN NOTES DR MCCLENDON AT BEDSIDE , SEEN AND EVALUATED THE PT , DISCUSSED LABS , CHEST XRAY , BP OF 160-170'S , AFEBRILE , DISCUSSED PULMONARY MD PLAN OF CARE , MD AWARE , REPLACED MAGNESIUM WITH 4GM AND ORDER DAILY LABS , ORDERS CARRIED OUT
[2016-12-27] MEDS: FUROSEMIDE 40 MG/4 ML VIAL IV SCH (11:00)
[2016-12-27] MEDS: Magnesium 1GM/D5W 100ML PREMIX 100 ML IV SCH ×4 (11:00→14:01)
--- NOTE | 2016-12-27 12:28 | NUR ---
HYDRATOR NOTES DR HDEZ AT BEDSIDE ,DISCUSSED LABS , , CHEST XRAY , S/P LASIX 40 MG , DIURESIS WELL , PT HAS IVF OF NS @ 150ML/HR AND TUBE FEEDING OF FIBERSOURCE @ 50ML/HR , PER MD DISCONTINUE IVF AND HE WILL ADD 2GM MAGNESIUM , ORDERS CARRIED OUT
[2016-12-27] MEDS ORDERED: IV NS 0.9% 250 ML IV ONE (12:33)
[2016-12-27] MEDS ORDERED: IV NS 0.9% 250 ML IV PRN (13:00)
[2016-12-27] MEDS: Magnesium 1GM/D5W 100ML PREMIX 1 G in PREMIX 1 EA IV SCH ×2 (16:01→17:17)
[2016-12-27] MEDS: NEOMY SULF/BACITRAC ZN/POLY 15 GM TUBE TP SCH (16:01)
--- NOTE | 2016-12-27 23:43 | NUR ---
SOFTWARE ENGINEER WEB APPLICATIONS DF RECEIVED PT TO ROOM#263 PT SEDATED ON DIPRIVAN @ 70 MCG. PT RESPONDS TO TACTILE STIMULI, OPENS EYES, DOES NOT FOLLOW COMMANDS, BUE/BLE WITH WEAKNESS 2ND PROPOFOL. TOLERATING AC VENT SETTINGS O2 SAT OF 98% RR OF 20. VSS.NAD NOTED.
[2016-12-28] VITALS (37 sets, daily range): BP systolic 122–181; BP diastolic 45–125
[2016-12-28] MEDS: PROPOFOL 100 ML IV PRN ×7 (00:14→10:58)
[2016-12-28] MEDS ORDERED: IV SET PRIMARY PUMP SET 1 EA INFUS.SET MC ONE ×2 (02:40→23:00)
[2016-12-28 04:48] LABS: BASOPHILS % (AUTO) 0.2 % (0.0-2.0); EOSINOPHILS # (AUTO) 0.2 /CMM (0.0-0.7); HEMATOCRIT 33 % (39-51); LYMPHOCYTES % (AUTO) 14.3 % (20.0-44.0); MEAN CORPUSCULAR HEMOGLOBIN 31 PG (26.0-33.0); MEAN CORPUSCULAR HGB CONC 33 g/dl (31.0-36.0); MEAN CORPUSCULAR VOLUME 93 fL (80-96); MONOCYTES # (AUTO) 0.4 /CMM (0.1-1.30); MONOCYTES % (AUTO) 6.4 % (2.0-12.0); NEUTROPHILS # (AUTO) 5.4 /CMM (1.8-8.9); NEUTROPHILS % (AUTO) 76.1 % (43.0-81.0); PLATELET COUNT (AUTO) 366 /CMM (150-450); RDW COEFFICIENT OF VARIATION 15.4 (11.5-15.0); RED BLOOD CELL COUNT(AUTO) 3.54 MIL/uL (4.5-6.0)
[2016-12-28 05:00] LABS: CALCIUM, SERUM 8.2 mg/dL (8.5-10.1); CREATININE 0.9 mg/dL (0.6-1.3); MAGNESIUM 1.5 mg/dL (1.8-2.4); PHOSPHORUS 3.6 mg/dL (2.5-4.9); POTASSIUM 3.4 mmol/L (3.5-5.1)
[2016-12-28] MEDS: PIPERACILLIN /TAZOBACTAM 3.375 G in IV D5W 50 ML IV SCH ×4 (05:25→23:08)
[2016-12-28] MEDS: FUROSEMIDE 40 MG/4 ML VIAL IV SCH (08:40)
[2016-12-28] MEDS: LACTOBACILLUS RHAMNOSUS GG 1 EACH CAP.SPRINK GT SCH ×2 (08:40→17:00)
[2016-12-28] MEDS: ENOXAPARIN SODIUM 30 MG/0.3 ML DISP.SYRIN SQ SCH (08:40)
[2016-12-28] MEDS: FAMOTIDINE/PF INJ 20 MG/2 ML VIAL IV SCH ×2 (08:40→20:43)
[2016-12-28] MEDS: PROSOURCE / PROSTAT (PYXIS) 30 ML UDC GT SCH ×2 (08:41→12:35)
[2016-12-28] MEDS: MUPIROCIN OINT 2% 22 GM TUBE TP SCH ×2 (09:26→20:44)
[2016-12-28] MEDS: NEOMY SULF/BACITRAC ZN/POLY 15 GM TUBE TP SCH (09:36)
[2016-12-28] MEDS ORDERED: POTASSIUM CHLORIDE 20 MEQ POWDER PACKET GT SCH (11:00)
[2016-12-28] MEDS ORDERED: POTASSIUM CHLORIDE 20 MEQ POWDER PACKET NG SCH (11:00)
--- NOTE | 2016-12-28 11:00 | NUR ---
Ankit suaoz. will continue to monitor aloc.
[2016-12-28] MEDS: Magnesium 1GM/D5W 100ML PREMIX 100 ML IV SCH ×2 (11:04→12:36)
--- NOTE | 2016-12-28 12:55 | NUR ---
PT AWAKE, COOPERATIVE, DENIES PAIN. DR HESTER AND BEDSIDE, SIMV TRIAL IS INITIATED.
--- NOTE | 2016-12-28 14:39 | NUR ---
PT EXTUBATED, AOX2 FOLLOWS COMMANDS. NOW ON 4LNC SAT 97%
--- NOTE | 2016-12-28 18:35 | NUR ---
PT RESTING COMFORTABLY, VSS, REMOVES NC DESPITE REMINDERS TO KEEP IT ON, SAT 95-97 ON ROOM AIR.
[2016-12-28] MEDS ORDERED: LORAZEPAM INJ 2 MG/ML VIAL IV STA (18:58)
[2016-12-28] MEDS ORDERED: LORAZEPAM INJ 2 MG/ML VIAL ONE ×2 (18:59→23:08)
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
--- NOTE | 2016-12-28 20:18 | NUR ---
received pt from day shift, alert, s/p extubation, very uncooperative, Ativan 3mg ivp given by day shift, on 4 point restraints, ST, on 4L 02 sat well, lungs clear, no edema, f/c intact, NPO, v/s stable, no pain, pt turns and repositions by himself.
[2016-12-28] MEDS ORDERED: IV NS 0.9% 250 ML IV ONE (23:01)
[2016-12-28] MEDS: LORAZEPAM INJ 2 MG/ML VIAL IV PRN (23:16)
[2016-12-29] VITALS (28 sets, daily range): BP systolic 106–185; BP diastolic 65–111
--- NOTE | 2016-12-29 00:13 | NUR ---
pt is resting in the bed, v/s stable, no pain, ativan 2mg ivp given.
[2016-12-29] MEDS ORDERED: HALOPERIDOL LACTATE INJ 5 MG/ML VIAL ONE (01:29)
[2016-12-29] MEDS: HALOPERIDOL LACTATE INJ 5 MG/ML VIAL IM PRN ×2 (01:35→09:37)
--- NOTE | 2016-12-29 04:19 | NUR ---
pt is resting in the bed, Haldol 10mg given, v/s stable, no pain, pt cleaned, changed and repositioned.
[2016-12-29 04:51] LABS: BASOPHILS % (AUTO) 0.2 % (0.0-2.0); EOSINOPHILS # (AUTO) 0.2 /CMM (0.0-0.7); EOSINOPHILS % (AUTO) 1.7 % (0.0-6.0); HEMATOCRIT 40 % (39-51); LYMPHOCYTES # (AUTO) 1.5 /CMM (0.8-4.8); LYMPHOCYTES % (AUTO) 14.1 % (20.0-44.0); MEAN CORPUSCULAR HEMOGLOBIN 30 PG (26.0-33.0); MEAN CORPUSCULAR HGB CONC 33 g/dl (31.0-36.0); MEAN CORPUSCULAR VOLUME 93 fL (80-96); MONOCYTES # (AUTO) 0.8 /CMM (0.1-1.30); MONOCYTES % (AUTO) 7.6 % (2.0-12.0); NEUTROPHILS # (AUTO) 8.1 /CMM (1.8-8.9); NEUTROPHILS % (AUTO) 76.4 % (43.0-81.0); PLATELET COUNT (AUTO) 437 /CMM (150-450); RDW COEFFICIENT OF VARIATION 14.8 (11.5-15.0); RED BLOOD CELL COUNT(AUTO) 4.28 MIL/uL (4.5-6.0); WHITE BLOOD COUNT (AUTO) 10.6 K/uL (4.3-11.0)
[2016-12-29 05:05] LABS: CALCIUM, SERUM 9.3 mg/dL (8.5-10.1); CREATININE 1.2 mg/dL (0.6-1.3); MAGNESIUM 1.5 mg/dL (1.8-2.4); POTASSIUM 3.8 mmol/L (3.5-5.1)
[2016-12-29] MEDS: PIPERACILLIN /TAZOBACTAM 3.375 G in IV D5W 50 ML IV SCH (05:29)
--- NOTE | 2016-12-29 07:45 | NUR ---
ICU/RN PT IS RESTING IN THE BED.ON 4L N/C.SAT O2-95%.V/S STABLE,AFEBRILE.NO PAIN REPORTED AT THIS TIME.BILATERAL SOFT WRIST RESTRAINS ON.PT S/P EXTUBATION ON 12/28/16.NPO.WAITING FOR SWALLOW EVALUATION.F/C DRAINING WITH GREEN URINE.IV-TKO.RIGHT SUBCLAVIAN TLC.LABS REVIEW.MG-1.5. NOTIFIED.NEW ORDERS RECEIVED.
[2016-12-29] MEDS: FAMOTIDINE/PF INJ 20 MG/2 ML VIAL IV SCH ×2 (08:17→21:00)
[2016-12-29] MEDS: MUPIROCIN OINT 2% 22 GM TUBE TP SCH ×2 (08:17→21:00)
[2016-12-29] MEDS: FUROSEMIDE 40 MG/4 ML VIAL IV SCH (08:17)
[2016-12-29] MEDS: LACTOBACILLUS RHAMNOSUS GG 1 EACH CAP.SPRINK GT SCH ×2 (08:17→15:44)
[2016-12-29] MEDS: Z GUARD REMEDY 2 OZ OINT TP PRN (08:18)
[2016-12-29] MEDS: NEOMY SULF/BACITRAC ZN/POLY 15 GM TUBE TP SCH (08:18)
[2016-12-29] MEDS: ENOXAPARIN SODIUM 30 MG/0.3 ML DISP.SYRIN SQ SCH (08:20)
--- NOTE | 2016-12-29 08:40 | NUR ---
ICU/RN DUE MEDS ARE GIVEN ORDERED.
[2016-12-29] MEDS ORDERED: SECONDARY IV SET 1 EA INFUS.SET MC ONE (09:18)
[2016-12-29] MEDS: Magnesium 1GM/D5W 100ML PREMIX 100 ML IV SCH ×3 (09:36→11:48)
[2016-12-29] MEDS: LORAZEPAM INJ 2 MG/ML VIAL IV PRN ×2 (09:37→15:44)
--- NOTE | 2016-12-29 09:45 | NUR ---
ICU/RN PT IS AWAKE ,AGITATED,RESTLESS,UNCOOPERATIVE.ATIVAN 2 MG IV GIVEN,HALOPERIDOL 10 MG IM GIVEN ORDERED.REPOSITION FOR COMFORT.BILATERAL SOFT WRIST RESTRAINS ON.
--- NOTE | 2016-12-29 15:45 | NUR ---
ICU/RN PT IS AWAKE,AGITATED.ATIVAN 2 MG IV GIVEN ORDERED.
--- NOTE | 2016-12-29 16:20 | NUR ---
ICU/RN PT TRANSFER TO [facility] .V/S STABLE,AFEBRILE.NO PAIN REPORTED AT THIS TIME.PT IS RESTING IN THE BED.
--- NOTE | 2016-12-29 16:45 | NUR ---
ECHOMETER ENGINEER INITIAL NOTE PT ARRIVED TO THE UNIT CALM IN BED. ON 4L N/C.SAT O2-96%.V/S STABLE,AFEBRILE.NO PAIN REPORTED AT THIS TIME.HOWEVER PATIENT STATES THAT HE IS HUNGRY. PT HAS BILATERAL SOFT WRIST RESTRAINS ON. NEEDS RENEWAL AT 7PM PT S/P EXTUBATION ON 12/28/16. PT IS CURRENTLY NPO. AWAITING FOR SWALLOW EVALUATION.F/C DRAINING WITH YELLOW URINE.IV HEPARIN LOCKED RIGHT SUBCLAVIAN. RN WILL CONTINUE TO FOLLOW PATIENTS PROGRESS
--- NOTE | 2016-12-29 17:15 | NUR ---
RN NOTE PT CONTINUED TO ASK FOR FOOD AND BEGAN TO BECOME SLIGHTLY AGITATED CHARGE NURSE SOON NOTIFIED AND STATES THAT IT WOULD BE OK TO GIVE THE PATIENT APPLE SAUCE PENDING SWALLOW EVALUATION. PT TOLERATED WELL NO ASPIRATION NOTED NO DIFFICULTY NOTED. RN WILL CONTINUE TO FOLLOW THE PATIENTS PROGRESS. PT BELONGS CHECKED UPON ENTERING UNIT NO "GOLD COLORED CHAIN NOTED OR SPIRAL TUBE WINDER HELPER NOTED . CHARGE NURSE SOON NOTIFIED.
--- NOTE | 2016-12-29 19:30 | NUR ---
RN INITIAL NOTE RECEIVED PT IN NO ACUTE DISTRESS IN BED. PT IS A/O X 2 WITH PERIODS OF DISORIENTATION. PT IS ON O2 VIA NC @ 4LPM AND TOLERATING WELL WITH O2 SAT @ 98%. PT HAS BETTY PICC LINE THAT IS CLEAN DRY AND INTACT. PT HAS RIGHT EJ THAT IS CLEAN DRY AND INTACT. PT HAS LINWOOD WRIST RESTRAINTS AND PT IS FREQUENTLY OBSERVED. BED IN LOW LOCK POSITION WITH RIALS UP X 2. CALL LIGHT WITHIN REACH AND ALL SAFETY MEASURES ENSURED AND CARRIED OUT. WILL CONTINUE TO MONITOR PT.
[2016-12-30] VITALS (7 sets, daily range): BP systolic 112–144; BP diastolic 79–91
--- NOTE | 2016-12-30 07:16 | NUR ---
RN CLOSING NOTE PT REMAINS IN NO ACUTE DISTRESS IN BED. PT DID NOT HAVE ANY SIGNIFICANT CHANGE IN CONDITION DURING SHIFT. ALL NEEDS MET. ALL ORDERS CARRIED OUT. WILL ENDORSE TO AM RN FOR CONTINUITY OF CARE.
[2016-12-30 08:14] LABS: BASOPHILS # (AUTO) 0.1 /CMM (0.0-0.2); BASOPHILS % (AUTO) 0.7 % (0.0-2.0); EOSINOPHILS # (AUTO) 0.3 /CMM (0.0-0.7); EOSINOPHILS % (AUTO) 2.1 % (0.0-6.0); HEMATOCRIT 44 % (39-51); HEMOGLOBIN 14.7 g/dL (13.5-17.5); LYMPHOCYTES # (AUTO) 2.1 /CMM (0.8-4.8); LYMPHOCYTES % (AUTO) 15.4 % (20.0-44.0); MEAN CORPUSCULAR HEMOGLOBIN 31 PG (26.0-33.0); MEAN CORPUSCULAR HGB CONC 34 g/dl (31.0-36.0); MEAN CORPUSCULAR VOLUME 92 fL (80-96); MONOCYTES % (AUTO) 7.7 % (2.0-12.0); NEUTROPHILS # (AUTO) 9.9 /CMM (1.8-8.9); NEUTROPHILS % (AUTO) 74.1 % (43.0-81.0); PLATELET COUNT (AUTO) 457 /CMM (150-450); RDW COEFFICIENT OF VARIATION 14.6 (11.5-15.0); RED BLOOD CELL COUNT(AUTO) 4.73 MIL/uL (4.5-6.0); WHITE BLOOD COUNT (AUTO) 13.4 K/uL (4.3-11.0)
[2016-12-30 08:22] LABS: CALCIUM, SERUM 9.6 mg/dL (8.5-10.1); CREATININE 1.1 mg/dL (0.6-1.3); POTASSIUM 3.9 mmol/L (3.5-5.1)
[2016-12-30] MEDS: LACTOBACILLUS RHAMNOSUS GG 1 EACH CAP.SPRINK GT SCH ×2 (08:37→16:48)
[2016-12-30] MEDS: LORAZEPAM INJ 2 MG/ML VIAL IV PRN (08:46)
[2016-12-30] MEDS: FAMOTIDINE/PF INJ 20 MG/2 ML VIAL IV SCH ×2 (08:52→21:00)
[2016-12-30] MEDS: ENOXAPARIN SODIUM 30 MG/0.3 ML DISP.SYRIN SQ SCH (08:53)
[2016-12-30] MEDS: NEOMY SULF/BACITRAC ZN/POLY 15 GM TUBE TP SCH (08:56)
[2016-12-30] MEDS: MUPIROCIN OINT 2% 22 GM TUBE TP SCH ×2 (08:56→21:32)
--- NOTE | 2016-12-30 11:00 | NUR ---
TELE NOTE- DR. WILL AT BEDSIDE. UPDATED MD ON PT'S CONDITION. INFORMED MD PT AGGRESSIVE, ATTEMPTING TO GET OUT OF BED AND REMOVE RESTRAINTS. OBTAINED VERBAL ORDER FOR ATIVAN 1 MG IM Q8H & HALDOL 3 MG IM Q8H (TO BE GIVEN AT THE SAME TIME), FOR 3 DOSES ONLY. ORDER PLACED BY NATANAEL PLAZA RN. WILL CONTINUE TO MONITOR.
[2016-12-30] MEDS: HALOPERIDOL LACTATE INJ 5 MG/ML VIAL IM SCH ×3 (11:02→18:17)
[2016-12-30] MEDS: LORAZEPAM INJ 2 MG/ML VIAL IM SCH ×2 (11:03→18:19)
--- NOTE | 2016-12-30 11:42 | NUR ---
electric utility lineworker met with patient at bedside. Patient was oriented to place and self. Patient appeared confused and irritable. electric utility lineworker asked patient if he was homeless and patient stated, "I have a lot of places to live. I know a lot of people." electric utility lineworker asked patient if he wanted longterm placement and he refused any placement stating. "I just want to go." Patient stated that he has a friend Shan ([phone]) who is an actor. electric utility lineworker attempted to contact patient's friend Shan, However there was no answer and mental health social worker left a voicemail with her contact information and will attempt again later. electric utility lineworker provided patient with resources to homeless shelters, Showers & hot meals, and mental health services. Patient signed the homeless waiver form. electric utility lineworker informed patient that she was available if needed.
[2016-12-30] MEDS ORDERED: HALOPERIDOL LACTATE INJ 5 MG/ML VIAL IM SCH ×2 (12:21→19:00)
[2016-12-30] MEDS ORDERED: OLANZAPINE 5 MG/TAB.RAPDIS PO PRN (17:30)
--- NOTE | 2016-12-30 18:00 | NUR ---
TELE NOTE- CRISIS TEAM CONTACTED, AWARE TO SEE PT. PENDING EVALUATION. WILL ENDORSE TO SUPERVISOR PUMPING STATION NURSE. WILL CONTINUE TO MONITOR.
[2016-12-30] MEDS ORDERED: LORAZEPAM INJ 2 MG/ML VIAL ONE (18:10)
--- NOTE | 2016-12-30 19:30 | NUR ---
RN INITIAL NOTE RECEIVED PATIENT IN NO ACUTE DISTRESS IN BED. PATIENT IS CALM, SOMEWHAT LETHARGIC/SEDATED, S/P HALDOL/ATIVAN COCKTAIL FOR AGITATION. BREATHING EVEN AND NONLABORED, TOLERATING ROOM AIR WELL, FREE FROM ANY S/SOF RESPIRATORY DISTRESS. PATIENT NOTED WITH RIGHT SUBCLAVIAN TRIPLE LUMEN CATH, PATENT AND INTACT, NOTED WITH GOOD VENOUS RETURN, ALL PORTS FLUSHED WITH NS. BED IN LOWEST AND LOCKED POSITION WITH RAILS UP X 2. ELENA, CRISIS TEAM OPERATIONS RECRUITER AT BEDSIDE. PATIENT DENIES SI, NOT HOLDABLE AT THIS TIME. PATIENT CONTRACTED FOR SAFETY, RESTRAINTS OFF AT THIS TIME PER ELENA. WILL CONTINUE TO CLOSELY MONITOR
--- NOTE | 2016-12-30 21:36 | NUR ---
RN NOTES PATIENT REFUSING PO FAMOTIDINE, STATING "LEAVE ME ALONE, LET ME SLEEP." PATIENT DID HOWEVER ALLOW BACTROBAN TO BE ADMINISTERED TO NOSTRILS. EXPLAINED RISKS AND BENEFITS OF MEDICATION REFUSAL, WITH VERBALIZATION OF UNDERSTANDING, BUT PATIENT STILL STRONGLY REFUSING MEDICATION. WILL CONTINUE TO CLOSELY MONITOR
[2016-12-31] VITALS: BP 123/87
[2016-12-31] MEDS: HALOPERIDOL LACTATE INJ 5 MG/ML VIAL IM SCH (03:51)
[2016-12-31] MEDS: LORAZEPAM INJ 2 MG/ML VIAL IM SCH (03:51)
[2016-12-31 04:00] VITALS: BP 152/99
--- NOTE | 2016-12-31 07:00 | NUR ---
RN CLOSING NOTES PATIENT RESTING IN BED, LETHARGIC/SEDATED THROUGHOUT SHIFT, SAFETY MAINTAINED, NO RESTRAINTS THROUGHOUT NIGHT. PATIENT ENDORSED TO THE AM SHIFT NURSE FOR VALARIE
--- NOTE | 2016-12-31 07:20 | NUR ---
RN INITIAL NOTES: REC'D PT ASLEEP ON BED, NOT IN ANY DISTRESS, EASILY AROUSABLE, A/O X1-2, SEDATED. ON TELEMONITOR, SR/ST. HAS R SUBCLAVIAN CENTRAL LINE, FLUSHED, PATENT & INTACT W/ NO SIGNS OF INFECTION/ INFILTRATION. HAS FC DRAINING TO BARB COLORED URINE OUTPUT. NOT ON ANY RESTRAINTS, PT NOT AGITATED AT THIS TIME. PROVIDED COMFORT & SAFETY MEASURES. BED KEPT LOW & IN LOCKED POS. CALL LIGHT PLACED W/IN REACHED. ISOLATION PREC OBSERVED. WILL CONTINUE TO MONITOR.
[2016-12-31 08:00] VITALS: BP 113/83
[2016-12-31] MEDS: LACTOBACILLUS RHAMNOSUS GG 1 EACH CAP.SPRINK GT SCH (08:41)
[2016-12-31] MEDS: FAMOTIDINE/PF INJ 20 MG/2 ML VIAL IV SCH (08:41)
[2016-12-31] MEDS: ENOXAPARIN SODIUM 30 MG/0.3 ML DISP.SYRIN SQ SCH (08:42)
[2016-12-31] MEDS: NEOMY SULF/BACITRAC ZN/POLY 15 GM TUBE TP SCH (08:43)
[2016-12-31] MEDS: MUPIROCIN OINT 2% 22 GM TUBE TP SCH (08:43)
[2016-12-31 12:00] VITALS: BP 119/80
--- NOTE | 2016-12-31 12:23 | NUR ---
piece dye worker met with patient at bedside and asked again if patient wanted senior care. Patient agreed to go to a senior care placement. piece dye worker contacted [facility] ([phone]) [facility] [id number] and spoke to Aviva who stated that they did have a bed available and the patient can go with a referral. piece dye worker will follow-up.
--- NOTE | 2016-12-31 14:07 | NUR ---
ICE CREAM VAULT WORKER NOTES: PT DC TO [facility] ORDERED. MD AND CM AWARE OF CURRENT CONDITION AND LABORATORY VALUES PRIOR TO DC. DC INSTRUCTIONS AND DOCUMENTS PROVIDED TO PATIENT W/ VERBALIZATION OF UNDERSTANDING. ASKED PT ABOUT PHARMACY OF CHOICE, HE STATED THAT HE CAN'T REMEMBER THE ADDRESS. WOUND PICTURES REFUSED TO BE TAKEN. ALL BELONGINGS GIVEN TO PT INCLUDING OWN MEDICATIONS. CENTRAL LINE ACCESS REMOVED, PRESSURE DRESSING APPLIED, NO S/SX OF INFECTION AND BLEEDING NOTED. FC AND ID BAND REMOVED. PT LEFT FACILITY VIA WHEELCHAIR ACCOMPANIED BY MANAGER STERILE. NO CONCERNS EXPRESSED AT THIS TIME.
== END 2016-12-31 14:30 | disposition home or self-care (01) | DRG 812 ==
LOC: ER 22:07 → ICU 12-23 02:10 → TELE-TD 12-29 16:20 → TELE1 12-30 08:55
PROVIDERS: ADMIT Nurse Practitioner Acute Care; ATTEND Nurse Practitioner Acute Care
PROC: 05H533Z Insertion of Infusion Device into Right Subclavian Vein, Percutaneous Approach (ICD-10-PCS; principal; 2016-12-23)
PROC: B546ZZA Ultrasonography of Right Subclavian Vein, Guidance (ICD-10-PCS; principal; 2016-12-23)
PROC: 0BH18EZ Insertion of Endotracheal Airway into Trachea, Via Natural or Artificial Opening Endoscopic (ICD-10-PCS; principal; 2016-12-23)
PROC: 5A1955Z Respiratory Ventilation, Greater than 96 Consecutive Hours (ICD-10-PCS; principal; 2016-12-23)
DX: T42.8X1A Poisoning by antiparkinsonism drugs and other central muscle-tone depressants, accidental (unintentional), initial encounter (principal); J96.00 Acute respiratory failure, unspecified whether with hypoxia or hypercapnia; N17.0 Acute kidney failure with tubular necrosis; J69.0 Pneumonitis due to inhalation of food and vomit; G92 Toxic encephalopathy; A41.9 Sepsis, unspecified organism; I50.33 Acute on chronic diastolic (congestive) heart failure; J44.9 Chronic obstructive pulmonary disease, unspecified; D68.59 Other primary thrombophilia; E11.22 Type 2 diabetes mellitus with diabetic chronic kidney disease; I13.0 Hypertensive heart and chronic kidney disease with heart failure and stage 1 through stage 4 chronic kidney disease, or unspecified chronic kidney disease; I25.10 Atherosclerotic heart disease of native coronary artery without angina pectoris; I48.91 Unspecified atrial fibrillation; Z79.01 Long term (current) use of anticoagulants; F32.9 Major depressive disorder, single episode, unspecified; F29 Unspecified psychosis not due to a substance or known physiological condition; G89.4 Chronic pain syndrome; N18.9 Chronic kidney disease, unspecified; E27.40 Unspecified adrenocortical insufficiency; E83.42 Hypomagnesemia; E87.2 Acidosis; F17.200 Nicotine dependence, unspecified, uncomplicated; G47.30 Sleep apnea, unspecified; K72.90 Hepatic failure, unspecified without coma; N39.0 Urinary tract infection, site not specified; N40.0 Benign prostatic hyperplasia without lower urinary tract symptoms; J70.2 Acute drug-induced interstitial lung disorders; Y92.003 Bedroom of unspecified non-institutional (private) residence as the place of occurrence of the external cause; T40.2X1A Poisoning by other opioids, accidental (unintentional), initial encounter; S80.212A Abrasion, left knee, initial encounter; S00.31XA Abrasion of nose, initial encounter; Z78.1 Physical restraint status; G83.9 Paralytic syndrome, unspecified; Z79.899 Other long term (current) drug therapy; Z68.28 Body mass index [BMI] 28.0-28.9, adult; E66.9 Obesity, unspecified
CPT/HCPCS: 31720; 36415; 36600; 70450-TC; 71010-TC; 72125-TC; 76770-TC; 80048-TC; 80053-TC; 80061-TC; 80076-TC; 80305; 81000-TC; 82010-TC; 82550-TC; 82553-TC; 82570-TC; 82803-TC; 82962-TC; 83605-TC; 83735-TC; 83970; 84100-TC; 84155; 84155-TC; 84165; 84300-TC; 84443-TC; 84478-TC; 84484-TC; 85025-TC; 87081-TC; 87086-TC; 92611-TC; 93307-TC; 94002-TC; 94003-TC; 94799-TC; A4216; A4606; C9113; G0480; J0330; J1630; J1650; J1940; J1956; J2060; J2543; J3370; J3475; J3490; J7030; J7050; J7060; L0172; Z7610